=== PATIENT | female | born 1965 | race Hispanic/Latino ===

== ENCOUNTER 2019-01-11 07:20 | Day surgery (SDC) | payer OTHER ==
[2019-01-10 11:00] VITALS: BMI 33.7
[2019-01-11] MEDS ORDERED: Propofol 10 mg/ml Inj (20 ML) ONE (08:52)
[2019-01-11 10:10] VITALS: O2SAT 100
[2019-01-11 10:37] VITALS: BP 116/72; PULSE 87; RESP 19; TEMP 98.1
== END 2019-01-11 10:33 | disposition home or self-care (01) ==
LOC: C.ENDO 07:20
PROVIDERS: ATTEND Internal Medicine Gastroenterology
DX: K21.0 Gastro-esophageal reflux disease with esophagitis (principal); K29.50 Unspecified chronic gastritis without bleeding; Z12.11 Encounter for screening for malignant neoplasm of colon; K64.1 Second degree hemorrhoids; K57.30 Diverticulosis of large intestine without perforation or abscess without bleeding
CPT/HCPCS: 43239; 45378; 88305; 88312; 88342; J2001; J2704